=== PATIENT | female | born 1985 | race African-American/Black ===

== ENCOUNTER 2023-04-28 08:36 | Emergency (ER) | payer OTHER ==
[~2023-04-28] VITALS: Ht 165.1 cm; Wt 79.4 kg
[2023-04-28 08:47] VITALS: BP 137/77
[2023-04-28] MEDS ORDERED: KEFLEX500 MG PO (08:55)
[2023-04-28 09:00] VITALS: BP 142/75
[2023-04-28 09:15] VITALS: BP 133/76
[2023-04-28 09:30] VITALS: BP 143/86
[2023-04-28 09:47] VITALS: BP 110/86
[2023-04-28 09:59] VITALS: BP 110/86
== END 2023-04-28 09:59 | disposition home or self-care (01) ==
LOC: ED 08:36
DX: S61.412A Laceration without foreign body of left hand, initial encounter (principal); W26.0XXA Contact with knife, initial encounter; Y93.G3 Activity, cooking and baking

== ENCOUNTER 2023-05-07 09:50 | Emergency (ER) | payer OTHER ==
[~2023-05-07] VITALS: Ht 165.1 cm; Wt 81.6 kg
[~2023-05-07 09:50] MED LIST: KEFLEX500 MG PO
[2023-05-07 10:03] VITALS: BP 145/88
[2023-05-07 10:15] VITALS: BP 146/79
[2023-05-07 10:31] VITALS: BP 142/95
[2023-05-07 10:45] VITALS: BP 142/95
== END 2023-05-07 10:50 | disposition home or self-care (01) ==
LOC: ED 09:50
DX: S61.412D Laceration without foreign body of left hand, subsequent encounter (principal); X58.XXXD Exposure to other specified factors, subsequent encounter

== ENCOUNTER 2023-05-10 10:29 | Emergency (ER) | payer OTHER ==
[~2023-05-10] VITALS: Ht 165.1 cm; Wt 66.9 kg
[2023-05-10 10:36] VITALS: BP 138/93
[2023-05-10 10:45] VITALS: BP 136/81
[2023-05-10 11:00] VITALS: BP 117/82
[2023-05-10 11:24] VITALS: BP 117/82
[2023-05-10] MEDS ORDERED: CEPHALEXIN500 M1 PO (11:28)
== END 2023-05-10 11:31 | disposition home or self-care (01) ==
LOC: ED 10:29
DX: S61.412D Laceration without foreign body of left hand, subsequent encounter (principal); X58.XXXD Exposure to other specified factors, subsequent encounter